=== PATIENT | male | born 1975 ===

== ENCOUNTER 2017-05-30 12:27 | Emergency (ER) | payer SELFPAY ==
[2017-05-30 13:55] VITALS: BP 189/104; PULSE 70; RESP 18; TEMP 98.6; O2SAT 99
[2017-05-30] MEDS ORDERED: Oxycodone/Acetaminophen 5/325 mg Tab PO STA (14:05)
--- NOTE | 2017-05-30 14:05 | C.PDOC ---
History Of Present Illness R UPPER TOOTH, FACIAL SWELLING SINCE TODAY. HO PAIN IN TOOTH "FOR A WHILE". NO TRAUMA. NO FEVER EXAM MOD DIST NONTOXIC HEENT DIFFUSE POOR DENTITION. +DENTALGIA R UPPER CANINE. NO ABSCESS. +R FACIAL SWELL, NO ERYTHEMA. NO STRIDOR REMAINDER NEG MDM DENTAL REFERRAL INFO GIVEN. Time Seen by Provider: 05/30/17 13:57 Chief Complaint (Nursing): Dental Pain History Per: Patient History/Exam Limitations: no limitations Onset/Duration Of Symptoms: Sudden Onset (today) Past Medical History Reviewed: Historical Data, Nursing Documentation, Vital Signs Vital Signs: Last Vital Signs Temp 98.6 F 05/30/17 13:20 Pulse 70 05/30/17 13:20 Resp 18 05/30/17 13:20 BP 189/104 H 05/30/17 13:20 Pulse Ox 99 05/30/17 14:09 Family History: States: No Known Family Hx - Social History Hx Alcohol Use: Yes Hx Substance Use: No Review Of Systems Except As Marked, All Systems Reviewed And Found Negative. Constitutional: Negative for: Fever ENT: Positive for: Other ((+) right upper tooth and facial swelling). Negative for: Mouth Swelling, Throat Pain Gastrointestinal: Negative for: Vomiting Musculoskeletal: Negative for: Neck Pain Physical Exam - Physical Exam Appears: Non-toxic, In Acute Distress (moderate) Skin: Warm, Dry, No Rash, Other ((+) right facial swelling (-) erythema) Oral Mucosa: Moist, No Drooling, No Trismus Lips: Normal Appearing Teeth: Other ((+) diffuse poor dentition, +dentalgia to the right upper canine) Gingiva: No Abscess Throat: Normal, No Erythema, No Exudate, No Drooling Neck: Normal, Normal ROM, Supple Respiratory: Normal Breath Sounds Neurological/Psych: Oriented x3, Normal Speech, Normal Motor ED Course And Treatment O2 Sat by Pulse Oximetry: 99 (RA) Pulse Ox Interpretation: Normal Medical Decision Making Medical Decision Making: PLAN: * Motrin PO * Pen-Vee K PO * Percocet PO NOTE: Dental referral info given Disposition Counseled Patient/Family Regarding: Diagnosis, Need For Followup, Rx Given - Disposition Referrals: YOUR,DENTIST [Other] Disposition: HOME/ ROUTINE Disposition Time: 14:04 Condition: IMPROVED Prescriptions: Acetaminophen with Codeine [Tylenol with Codeine No. 3 300 mg-30 mg] 1 tab PO Q6 PRN #12 tab PRN Reason: Pain, Moderate (4-7) Ibuprofen [Motrin] 600 mg PO Q6 #30 tab Penicillin VK [Penicillin VK Tab] 250 mg PO Q6H #28 tab Instructions: Dental Caries (ED) Forms: [employer] & other things you bake ([place]) - Clinical Impression Clinical Impression: Dental caries - Scribe Statement The provider has reviewed the documentation as recorded by the Lynda Dixon Provider Attestation: All medical record entries made by the Lynda were at my direction and personally dictated by me. I have reviewed the chart and agree that the record accurately reflects my personal performance of the history, physical exam, medical decision making, and the department course for this patient. I have also personally directed, reviewed, and agree with the discharge instructions and disposition.
[2017-05-30] MEDS ORDERED: Oxycodone/Acetaminophen 5/325 mg Tab ONE (14:13)
== END 2017-05-30 14:19 | disposition home or self-care (01) ==
LOC: C.ER 12:27
DX: K02.9 Dental caries, unspecified (principal)